=== PATIENT | male | born 1950 | race Caucasian/White ===

== ENCOUNTER 2016-08-23 05:37 | Day surgery (SDC) | payer BC, MEDICARE ==
[2016-08-23] MEDS ORDERED: Dextrose 5%-Lactated Ringers 1,000 ML IV SCH (06:00)
[2016-08-23] MEDS ORDERED: ceFAZolin 2 GM in Premix Bag 1 BAG IV ONE (06:45)
[2016-08-23] MEDS ORDERED: ceFAZolin 2 GM in Sodium Chloride 0.9% 50 ML IV ONE (06:45)
[2016-08-23] MEDS ORDERED: Bupivacaine 0.5% 50 ML MDV ONE (06:50)
[2016-08-23] MEDS ORDERED: Lidocaine 1% with EPINEPHrine 1:100,000 50 ML MDV ONE (06:50)
[2016-08-23] MEDS ORDERED: fentaNYL 100 MCG/2 ML SDV ONE (07:07)
[2016-08-23] MEDS ORDERED: Lidocaine 0.5% 50 ML SDV ONE (07:07)
[2016-08-23] MEDS ORDERED: Propofol 200 MG/20 ML SDV ONE (07:07)
[2016-08-23] MEDS ORDERED: Midazolam 1 MG/ML 2 ML SDV ONE (07:08)
[2016-08-23 09:12] VITALS: BP 134/81
--- NOTE | 2016-09-03 08:29 | OR ---
DATE OF PROCEDURE: 08/23/2016 PREOPERATIVE DIAGNOSIS: Inflammatory mass associated with probable foreign body overlying the volar aspect of the distal phalange of the right middle finger. POSTOPERATIVE DIAGNOSIS: Inflammatory mass associated with probable foreign body overlying the volar aspect of the distal phalange of the right middle finger. OPERATIVE PROCEDURE: Excision of inflammatory mass over the palmar aspect of distal phalange of the right middle finger (34052). ANESTHESIA: IV block plus sedation. INDICATION FOR PROCEDURE: The patient is several months status post having what appeared to be some fiberglass go under the skin into the palmar aspect of the end of the right middle finger. This did result in quite a bit in the way of inflammatory response there. This does not appear to be infectious, but most likely inflammatory response in reaction to the foreign body. The plan at this point will be to essentially excise that inflammatory tissue, which should likely contain the foreign body as well. Potential risks including bleeding, infection, possibility of persistence or recurrence of the problem over time were all reviewed, and the patient wishes to proceed. DETAILS OF PROCEDURE: The patient was taken to the operating room and placed in a supine position. IV block was placed affecting the right forearm and hand, and those areas were prepped and draped. An elliptical incision with the long axis in the direction of the finger was made and carried down through the skin and subcutaneous tissue. The enlarged inflamed soft tissue was then sequentially excised. This included down to the level of the fascia and down to the insertion of the flexor tendon at the distal phalange. All the inflamed firm tissue was removed. The tissue was more of a white scar type material, and at that point, the area was inspected. No further problems were noted. The deeper soft tissues were approximated with some 4-0 Vicryl stitch and the skin with a 5-0 Prolene skin stitch. Dressing was applied. The patient was taken to the recovery room in satisfactory condition. The amount of tissue removed measured at 2 cm in maximal dimension. Edward Chew MD /[id number]
== END 2016-08-23 09:10 | disposition home or self-care (01) ==
LOC: JP.SDS 05:37
PROVIDERS: ATTEND Surgery
PROC: 0JBJ0ZZ Excision of Right Hand Subcutaneous Tissue and Fascia, Open Approach (ICD-10-PCS; principal; 2016-08-23)
DX: M72.4 Pseudosarcomatous fibromatosis (principal)
CPT/HCPCS: 26115; 88307; J0690; J2250; J2704; J3010; J7042; J7050

== ENCOUNTER 2023-09-15 08:49 | Inpatient (IN) | payer MEDICARE, BC ==
[~2023-09-15 08:49] MED LIST: Midazolam 1 MG/ML 2 ML SDV ONE; Propofol 200 MG/20 ML SDV ONE; fentaNYL 100 MCG/2 ML SDV ONE
[2023-09-15 09:21] LABS: HEMATOCRIT 42.9 % (38.4-49.7); MEAN CORPUSCULAR HEMOGLOBIN 30.3 pg (31.6-35.5); MEAN CORPUSCULAR VOLUME 86.7 fL (81.4-99.0); RED BLOOD CELL COUNT 4.95 M/uL (4.14-5.76); WHITE BLOOD CELL COUNT,WBC 5.6 K/uL (3.2-11.0)
[2023-09-15 09:42] LABS: ALANINE AMINOTRANSFERASE,ALT 32 U/L (12-78); ALBUMIN 3.4 g/dL (3.4-5.0); ALKALINE PHOSPHATASE 74 U/L (46-116); ASPARTATE AMNIOTRANSFERASE,AST 20 U/L (15-37); BILIRUBIN TOTAL 0.6 mg/dL (0.2-1.0); BLOOD UREA NITROGEN,BUN 22 mg/dL (7-18); CALCIUM 8.5 mg/dL (8.5-10.1); CARBON DIOXIDE,CO2 28 mmol/L (21-32); CHLORIDE,CL 105 mmol/L (100-108); CREATININE 1.2 mg/dL (0.8-1.3); EST CRCL DRUG DOSING (CG) 58.39 mL/min; ESTIMATED GFR 64 mL/min (>60); GLUCOSE RANDOM 109 mg/dL (74-106); POTASSIUM,K 4.1 mmol/L (3.6-5.2); PROTEIN TOTAL,TP 6.9 g/dL (6.4-8.2); SODIUM,NA 139 mmol/L (140-148)
[2023-09-15 09:43] LABS: ANION GAP 10.1 mmol/L (5.0-14.0)
[2023-09-15] MEDS: Lactated Ringers 1,000 ML IV SCH (10:22)
[2023-09-15] MEDS: Nozin Nasal Sanitizer NASBOTH SCH ×2 (10:23→21:29)
[2023-09-15] MEDS ORDERED: Morphine 2 MG/ML SYRINGE IVPUSH PRN (12:07)
[2023-09-15] MEDS ORDERED: Ondansetron 4 MG/2 ML SDV IVPUSH PRN (12:07)
[2023-09-15] MEDS ORDERED: Magnesium Hydroxide 400 MG/5 ML Susp 30 ML Cup PO PRN (12:07)
[2023-09-15] MEDS ORDERED: ceFAZolin 2 GM in Sodium Chloride 0.9% 100 ML IV SCH (12:15)
[2023-09-15] MEDS: Tranexamic Acid 1,000 MG in Sodium Chloride 0.9% 50 ML IV ONE (12:45)
[2023-09-15] MEDS ORDERED: Propofol 200 MG/20 ML SDV ONE ×3 (13:05→13:53)
[2023-09-15] MEDS: Bupivacaine 0.5% 50 ML MDV ONE (13:07)
[2023-09-15] MEDS: Sodium Chloride 0.9% 1,000 ML IV SCH (16:30)
[2023-09-15] MEDS: Ketorolac 30 MG/ML SDV IVPUSH PRN (16:31)
[2023-09-15] MEDS: Acetaminophen 325 MG Tab PO SCH (16:33)
[2023-09-15] MEDS: ceFAZolin 2 GM in Premix Bag 1 BAG IV SCH (19:57)
[2023-09-16] MEDS: Lisinopril 10 MG Tab PO ONE (00:28)
[2023-09-16] MEDS: oxyCODONE 5 MG Tab PO PRN ×2 (03:22→09:43)
[2023-09-16] MEDS: Citalopram 20 MG Tab PO SCH (09:45)
[2023-09-16] MEDS: buPROPion 150 MG Tab.SR PO SCH (09:46)
[2023-09-16] MEDS: Aspirin 325 MG Tab.EC PO SCH (09:46)
[2023-09-16] MEDS: Lisinopril 10 MG Tab PO SCH (09:46)
[2023-09-17] MEDS: Docusate Sodium 100 MG Cap PO PRN (08:03)
[2023-09-17 11:30] VITALS: BP 136/74; PULSE 78
== END 2023-09-17 13:25 | disposition home or self-care (01) | DRG 470 ==
LOC: JP.SDS 08:49 → JP.MS 16:04 → JP.SDS 09-16 12:20
PROVIDERS: ADMIT Specialist; ATTEND Specialist
PROC: 0SRD069 Replacement of Left Knee Joint with Oxidized Zirconium on Polyethylene Synthetic Substitute, Cemented, Open Approach (ICD-10-PCS; principal; 2023-09-15 08:30)
DX: M17.12 Unilateral primary osteoarthritis, left knee (principal); Z68.41 Body mass index [BMI] 40.0-44.9, adult; I10 Essential (primary) hypertension; E66.01 Morbid (severe) obesity due to excess calories; G47.33 Obstructive sleep apnea (adult) (pediatric); Z98.890 Other specified postprocedural states; Z79.899 Other long term (current) drug therapy; Z88.0 Allergy status to penicillin; Z91.013 Allergy to seafood
CPT/HCPCS: 36415; 73560-26-LT; 73560-LT; 80053; 85027; 93971-26-LT; 93971-LT; 97110-GP; 97116-GP; 97161-GP; 97165-GO; 97530-GP; 97535-GO; A9270-GY; C1713; C1776; J0665; J0690; J1885; J2250; J2704; J3010; J3490; J7030; J7120

== ENCOUNTER 2024-09-10 06:41 | Day surgery (SDC) | payer MEDICARE, BC ==
[2024-09-10] MEDS ORDERED: fentaNYL 100 MCG/2 ML SDV ONE (07:04)
[2024-09-10] MEDS ORDERED: Propofol 200 MG/20 ML SDV ONE (07:04)
[2024-09-10] MEDS: Lactated Ringers 1,000 ML IV SCH (07:36)
[2024-09-10 10:22] VITALS: BP 118/76; PULSE 51
== END 2024-09-10 10:00 | disposition home or self-care (01) ==
LOC: JP.SDS 06:41
PROVIDERS: ATTEND Family Medicine
DX: Z12.11 Encounter for screening for malignant neoplasm of colon (principal); D12.4 Benign neoplasm of descending colon; K57.30 Diverticulosis of large intestine without perforation or abscess without bleeding; Z86.0101 Personal history of adenomatous and serrated colon polyps; I10 Essential (primary) hypertension; G47.33 Obstructive sleep apnea (adult) (pediatric); E78.5 Hyperlipidemia, unspecified; E66.9 Obesity, unspecified; Z79.899 Other long term (current) drug therapy; Z91.013 Allergy to seafood; Z88.0 Allergy status to penicillin; Z88.8 Allergy status to other drugs, medicaments and biological substances
CPT/HCPCS: 00811-QZ; 45380; 88305; J2704; J3010; J7120